=== PATIENT | female | born 1975 | race Caucasian/White ===

== ENCOUNTER 2020-08-14 14:07 | Inpatient (IN) | payer MEDICAID, SELFPAY ==
[~2020-08-14] VITALS: Ht 165.1 cm; Wt 67.6 kg
[2020-08-14 14:10] VITALS: BP 127/84
[2020-08-14] MEDS ORDERED: ONDANSETRON 4 MG ODT PO ONE (14:30)
[2020-08-14] MEDS ORDERED: KETOROLAC 30 MG/ML VIAL IM ONE (14:30)
[2020-08-14] MEDS ORDERED: ONDANSETRON 4 MG ODT ONE (14:35)
[2020-08-14] MEDS ORDERED: KETOROLAC 30 MG/ML VIAL ONE (14:35)
[2020-08-14 14:52] LABS: BASOPHILS # (AUTO) 0.1 K/uL (0.00-0.22); BASOPHILS % (AUTO) 1.2 % (0.0-2.0); EOSINOPHILS # (AUTO) 0.4 K/uL (0-0.4); EOSINOPHILS % (AUTO) 6.4 % (0.0-4.0); HEMATOCRIT 38.2 % (36-48); HEMOGLOBIN 12.8 g/dL (12.0-16.0); LYMPHOCYTES # (AUTO) 1.4 K/uL (2.5-16.5); LYMPHOCYTES % (AUTO) 24.6 % (20.5-51.1); MEAN CORPUSCULAR HEMOGLOBIN 32 pg (27-31); MEAN CORPUSCULAR HGB CONC 34 g/dL (33-37); MEAN CORPUSCULAR VOLUME 95.6 fL (80-94); MONOCYTES # (AUTO) 0.4 K/uL (0.8-1.0); MONOCYTES % (AUTO) 6.4 % (1.7-9.3); NEUTROPHILS # (AUTO) 3.6 K/uL (1.8-7.7); NEUTROPHILS % (AUTO) 61.4 % (42.2-75.2); PLATELET COUNT (AUTO) 268 K/uL (140-450); RED CELL DISTRIBUTION WIDTH 13.5 % (11.6-13.7); WHITE BLOOD COUNT (AUTO) 5.8 K/uL (4.8-10.8)
[2020-08-14 15:04] LABS: PROTHROMBIN TIME 9.3 secs (10.8-13.4)
[2020-08-14 15:28] LABS: APPEARANCE,URINE CLOUDY (CLEAR); BILIRUBIN,URINE NEGATIVE (NEGATIVE); BLOOD, URINE 3+ (NEGATIVE); COLOR,URINE RED (YELLOW); LEUKOCYTE ESTERASE ,URINE NEGATIVE (NEGATIVE); NITRITE, URINE NEGATIVE (NEGATIVE); PH,URINE 6.5 (5.0-9.0); UGLUCOSE NEGATIVE (NEGATIVE)
[2020-08-14 15:54] LABS: RBC,URINE 11-20 (MOD) /HPF (0-5); WBC,URINE 0-5 /HPF (0-5)
[2020-08-14] MEDS ORDERED: HYDROcodone/APAP 5/325 MG 1 TAB TAB PO ONE (16:00)
[2020-08-14] MEDS ORDERED: LEVO0.124 PO (17:06)
[2020-08-14 18:10] VITALS: BP 117/74
[2020-08-15] VITALS: BP 111/62
[2020-08-15 04:00] VITALS: BP 114/66
[2020-08-15 08:00] VITALS: BP 92/57
[2020-08-15] MEDS ORDERED: ONDANSETRON 4 MG/2 ML VIAL IVP PRN ×2 (09:25→18:45)
[2020-08-15] MEDS ORDERED: MORPHINE SULFATE 5 MG/ML VIAL IVP PRN (09:25)
[2020-08-15] MEDS ORDERED: ROCURONIUM 50 MG/5 ML VIAL IV ONE (16:26)
[2020-08-15] MEDS ORDERED: SEVOFLURANE 250 ML BTL INH ONE (16:26)
[2020-08-15] MEDS ORDERED: METOCLOPRAMIDE 10 MG/2 ML INJ VIAL ONE (16:26)
[2020-08-15] MEDS ORDERED: ETOMIDATE 20 MG/10 ML VIAL IVP ONE (16:26)
[2020-08-15] MEDS ORDERED: ePHEDrine 50 MG/ML VIAL ONE (16:26)
[2020-08-15] MEDS ORDERED: GLYCOPYRROLATE 0.2 MG/ML VIAL ONE (16:26)
[2020-08-15] MEDS ORDERED: MORPHINE PRES FREE 10 MG/10 ML AMP IV ONE (16:26)
[2020-08-15] MEDS ORDERED: ONDANSETRON 4 MG/2 ML VIAL ONE (16:26)
[2020-08-15] MEDS ORDERED: SUCCINYLCHOLINE CHLORIDE 200 MG/10 ML VIAL IVP ONE (16:26)
[2020-08-15] MEDS ORDERED: NEOSTIGMINE 1:1000 10 MG/10 ML VIAL ONE (16:26)
[2020-08-15] MEDS ORDERED: LIDOCAINE 2% 100 MG/5 ML SYR IVP ONE (16:26)
[2020-08-15] MEDS ORDERED: fentaNYL citrate 0.05 MG/ML VIAL ONE (16:26)
[2020-08-15] MEDS ORDERED: DEXAMETHASONE 4 MG/ML VIAL ONE (16:26)
[2020-08-15] MEDS ORDERED: MEPERIDINE 25 MG/ML SYR IVP PRN (18:45)
[2020-08-15] MEDS ORDERED: diphenhydrAMINE 50 MG/ML VIAL IVP PRN ×2 (18:45)
[2020-08-15] MEDS ORDERED: NALOXONE 0.4 MG/ML VIAL IVP PRN ×2 (18:45)
[2020-08-15] MEDS ORDERED: oxyCODONE/APAP 5/325 MG 1 TAB TAB PO PRN (18:50)
[2020-08-15 20:00] VITALS: BP 124/75
[2020-08-15] MEDS: ONDANSETRON 4 MG/2 ML VIAL IVP PRN (20:24)
[2020-08-15] MEDS: oxyCODONE/APAP 5/325 MG 1 TAB TAB PO PRN (20:45)
[2020-08-15] MEDS: LACTATED RINGERS 1,000 ML IV SCH (20:46)
[2020-08-16] MEDS: ONDANSETRON 4 MG/2 ML VIAL IVP PRN ×2 (00:45→11:57)
[2020-08-16] MEDS: IBUPROFEN 800 MG TAB PO SCH ×4 (00:46→18:28)
[2020-08-16] MEDS: KETOROLAC 30 MG/ML VIAL IM/IVP SCH ×4 (00:46→18:28)
[2020-08-16] MEDS: LACTATED RINGERS 1,000 ML IV SCH ×3 (03:05→16:25)
[2020-08-16 04:00] VITALS: BP 116/70
[2020-08-16 08:00] VITALS: BP 92/54
[2020-08-16] MEDS ORDERED: ONDANSETRON 4 MG/2 ML VIAL IVP PRN (19:00)
[2020-08-16 20:00] VITALS: BP 95/53
[2020-08-16] MEDS: oxyCODONE/APAP 5/325 MG 1 TAB TAB PO PRN (22:34)
[2020-08-17] MEDS: KETOROLAC 30 MG/ML VIAL IM/IVP SCH (00:51)
[2020-08-17] MEDS: IBUPROFEN 800 MG TAB PO SCH ×3 (00:51→11:14)
[2020-08-17 04:00] VITALS: BP 91/54
[2020-08-17] MEDS: oxyCODONE/APAP 5/325 MG 1 TAB TAB PO PRN (16:22)
[2020-08-17 16:44] VITALS: BP 99/56
== END 2020-08-17 17:55 | disposition home or self-care (01) | DRG 519 ==
LOC: MED 14:07 → MTU 16:58
PROVIDERS: ADMIT Obstetrics & Gynecology; ATTEND Obstetrics & Gynecology
PROC: 0UT94ZL Resection of Uterus, Supracervical, Percutaneous Endoscopic Approach (ICD-10-PCS; principal; 2020-08-15 13:25)
DX: D25.9 Leiomyoma of uterus, unspecified (principal); E03.9 Hypothyroidism, unspecified; N92.0 Excessive and frequent menstruation with regular cycle; R19.00 Intra-abdominal and pelvic swelling, mass and lump, unspecified site; Z20.822 Contact with and (suspected) exposure to COVID-19
CPT/HCPCS: 36415; 76856; 81001; 84702; 85025; 85610; 85730; 87081; 88307; 96372; 99285; J0330; J1100; J1885; J2001; J2270; J2405; J2710; J2765; J3010; J3490; Q0162